=== PATIENT | female | born 1945 | race African-American/Black ===

== ENCOUNTER 2017-03-23 07:49 | Outpatient (CLI) ==
[2013-05-03 12:07] VITALS: BMI 48.2
--- NOTE | 2017-03-24 11:35 | MAMMO ---
EXAM: Bilateral digital screening mammogram (2-D and 3-D) History: Screening Comparison: Bilateral mammogram 08/09/2015 Findings: MLO and CC views of bilateral breasts demonstrate scattered fibroglandular breast parenchy ma. CAD was reviewed by the radiologist. Tomosynthesis was performed. Stable benign nodule within the left breast. There are no developing masses and no suspicious microcalcifications. Impression: Benign stable mammogram. Recommend followup routine screening mammography in 1 year. BIRADS 2
== END 2017-03-23 07:50 | disposition home or self-care (01) ==
LOC: RAD 07:49
PROVIDERS: ATTEND Internal Medicine
DX: Z12.31 Encounter for screening mammogram for malignant neoplasm of breast (principal)
CPT/HCPCS: 77067

== ENCOUNTER 2018-03-21 14:34 | Outpatient (CLI) | payer OTHER ==
[2013-05-03 12:07] VITALS: BMI 48.2
== END 2018-03-21 14:35 | disposition home or self-care (01) ==
LOC: RAD 14:34
PROVIDERS: ATTEND Internal Medicine
DX: Z12.31 Encounter for screening mammogram for malignant neoplasm of breast (principal)
CPT/HCPCS: 77067

== ENCOUNTER 2018-08-09 06:41 | Outpatient (CLI) ==
[2013-05-03 12:07] VITALS: BMI 48.2
[2018-08-09] MEDS ORDERED: DOBUTAMINE 500 MG-D5W 250 ML 250 ML IV ONE (07:23)
[2018-08-09] MEDS ORDERED: ATROPINE SULFATE PFS ONE (07:23)
--- NOTE | 2018-08-09 12:27 | NM ---
Cardiac Stress Test HISTORY: Shortness of breath. Prior CABG. Surgical clearance. COMPARISON: None of this type. TECHNIQUE: Resting: The patient was injected with 3.5 millicuries of thallium 201 chloride intravenously after which a "resting" SPECT study of the heart was performed. Stress: The patient was stressed pharmacologically with dobutamine and at the appropriate time injec carisa with 25 millicuries of 99m technetium Sestamibi (Cardiolite) after which a "stress" SPECT study o f the heart was performed. Gated images of the heart were also obtained to assess wall motion and ca lculate ejection fraction. For details of the stress protocol employed, reference is made to the robinson arate report of the performing physician. FINDINGS: The stress perfusion images demonstrate decreased activity in the mid to basal inferolater al wall and periapical septum which appear to improve at rest suggesting ischemia. The resting perfu matthew images demonstrate no evidence of significant redistribution/ischemia. The left ventricular ejection fraction (LVEF) is 80%. IMPRESSION: 1. Left ventricular myocardial perfusion demonstrates regions of suspected ischemia in the mid to ba yoan inferolateral wall and periapical septum. 2. The left ventricular ejection fraction (LVEF) is 80%.
--- NOTE | 2018-08-10 09:07 | DOBSTECHST ---
Ordering Physician: DERICK DANIELLE MD Date of Test: 08/09/18 Reason for Examination: SHORTNESS OF BREATH, HX OF CABG, SURGICAL CLEARANCE Smoking History: QUIT 14 YRS Height: 65" Weight: 263 LBS Current Medications: LOSARTAN, METFORMIN, SIMVASTATIN, CIMETIDINE, METROPOLOL TARTRATE, CYPROHEPTADINE, TRAMADOL, 81 MG ASA, IRON, VIT D3, OZEMPI Target Heart Rate: 125 MAX: 148 S-T Segment Stage Time HR BPM BP MMHG Rhythm +/- Elevation Depression Symptoms Control Sitting 71 122/76 SR X NONE Dobutamine 250mg/D5W 5cmg/KG/mn 10cmg/KG/mn 3 MIN 76 126/66 SR X NONE 15cmg/KG/mn 2 MIN 84 128/60 SR X NONE 20cmg/KG/mn 2 MIN 85 128/54 SR X NONE 25cmg/KG/mn 2 MIN 94 SR X 0.25mg ATROPINE 30cmg/KG/mn :06 106 128/50 SR X NONE 35cmg/KG/mn 40cmg/KG/mn 4 MIN POST INFUSION z 88 118/70 SR X NONE 7 MIN POST INFUSION z 85 DURATION OF INFUSION 9:06 MAXIMUM HEART RATE REACHED 106 Interpretation: 1. INCONCLUSIVE FOR ISCHEMIC ST-T WAVE CHANGES PATIENT HAS BASELINE ABNORMAL ST-T WAVE (LEFT BUNDLE BRANCH BLOCK) 2. NO CHEST PAIN OR CHEST DISCOMFORT 3. LEFT VENTRICULAR CONTRACTILITY-MILDLY ABNORMAL SEPTAL WALL AT REST AND WITH DOBUTAMINE INFUSION 4. SESTAMIBI (CARDIOLITE) TO FOLLOW MTDD
--- NOTE | 2018-08-10 09:16 | ECHO2D ---
Date of Exam: 08/09/18 Ordering Physician: DERICK DANIELLE MD Room # : OP Reason for Echo: SHORTNESS OF BREATH, HX OF CABG, SURGICAL CLEARANCE M-Mode Normal Adult Results LV Dimensions Normal Adult Results AoV Opening excursions >1.6 >1.6 LVEDD-base- 3.5-5.8 4.1 Ao root dimensions 2.0-3.7 4.0 LVESD-base- 3.1-4.6 L. Atrium dimensions 1.9-3.8 4.4 Post. Wall thickness 0.8-1.1 1.3 IV septum (thickness) 0.7-1.2 1.4 Post. Wall excursion 0.72-1.3 NORMAL Septal motion 0.7 Systolic motion R. Ventricular cavity 1.5-2.0 NORMAL LVEF 60% 56% Paradoxical septal wall motion NORMAL 2-D : ENLARGED LEFT ATRIAL CAVITY-MILD STIFF HYPOKINETIC SEPTAL WALL. NORMAL VALVES- NO EFFUSION. NO THROMBUS M-MODE: MV: NORMAL AV: NORMAL TV: NORMAL PV: NORMAL CHAMBER SIZE: ENLARGED LEFT ATRIAL CAVITY WALL MOTION: STIFF SEPTUM PERICARDIUM: NORMAL INTERPRETATION: 1. LEFT VENTRICULAR HYPERTROPHY WITH ENLARGED LEFT ATRIAL CAVITY (4.4 CM) 2. STIFF SEPTUM-MILDLY HYPOKINETIC EF 56% 3. NORMAL VALVES MTDD
--- NOTE | 2018-08-12 08:02 | ECHOSTRESS ---
Date of Exam: 08/09/18 Ordering Physician: DR. DERICK DANIELLE Reason for Echo: HX CABG, SOB, SURG CLEARANCE,--DOBUTAMINE STRESS--INCONCLUSIVE M-Mode Normal Adult Results LV Dimensions Normal Adult Results AoV Opening excursions >1.6 LVEDD-base- 3.5-5.8 Ao root dimensions 2.0-3.7 LVESD-base- 3.1-4.6 L. Atrium dimensions 1.9-3.8 Post. Wall thickness 0.8-1.1 IV septum (thickness) 0.7-1.2 Post. Wall excursion 0.72-1.3 Septal motion Systolic motion R. Ventricular cavity 1.5-2.0 LVEF 60% Paradoxical septal wall motion 2-D: ABNORMAL SEPTAL WALL MOTION (LEFT BUNDLE BRANCH BLOCK) AT REST AND WITH DOBUTAMINE INFUSION M-MODE: MV: AV: TV: PV: CHAMBER SIZE: WALL MOTION: ABNORMAL SEPTAL WALL MOTION (LEFT BUNDLE BRANCH BLOCK) AT REST AND WITH DOBUTAMINE INFUSION PERICARDIUM: INTERPRETATION: 1. ABNORMAL SEPTAL WALL MOTION (LEFT BUNDLE BRANCH BLOCK) AT REST AND WITH DOBUTAMINE INFUSION MTDD
== END 2018-08-09 06:42 | disposition home or self-care (01) ==
LOC: CAR 06:41
PROVIDERS: ATTEND Internal Medicine
DX: R06.02 Shortness of breath (principal); Z95.1 Presence of aortocoronary bypass graft; Z01.810 Encounter for preprocedural cardiovascular examination